=== PATIENT | female | born 1940 | race African-American/Black ===

== ENCOUNTER → 2020-03-27 | Outpatient (CLI) | payer MEDICARE ==
--- NOTE | 2020-03-27 11:13 | RADIOLOGY REPORT (SQ) ---
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 TECHNIQUE: CT scan of the chest performed using helical scanning technique with dynamic intravenous contrast injection. Images reviewed with lung, soft tissue and bone windows. Reconstructed coronal and sagittal MPR and MIP images reviewed. All images stored on PACS. All CT scanners at this facility use dose modulation, iterative reconstruction, and/or weight based d osing when appropriate to reduce radiation dose to as low as reasonably achievable (ALARA). [facility]: Dose Right [facility]: CareDose [facility]: Dose Right [facility]: Teradose 4D [facility]: [employer] RENAL FUNCTION: Creatinine 1.5 RADIATION DOSE: CT Rad equipment meets quality standard of care and radiation dose reduction techniq ues were employed. CTDIvol: 4.7 - 5.5 mGy. DLP: 690 mGy-cm. . LIMITATIONS: None. FINDINGS: LUNGS AND PLEURA: No nodules or infiltrate. Mild emphysema. Bandlike scarring in the mid dle lobe and left lower lobe. HILAR AND MEDIASTINAL STRUCTURES: No identified masses or abnormal nodes. HEART AND VASCULAR STRUCTURES: No aneurysm or dissection. No central pulmonary emboli. No pericardi al effusion. HARDWARE: None in the chest. UPPER ABDOMEN: See separate report of the CT of the abdomen. THYROID AND OTHER SOFT TISSUES: No masses. No adenopathy. BONES: No significant finding. OTHER: No other significant finding. IMPRESSION: No evidence of metastatic disease. TECHNICAL DOCUMENTATION: JOB ID: [id number] Quality ID # [id number]: Final reports with documentation of one or more dose reduction techniques (e.g., Au tomated exposure control, adjustment of the mA and/or kV according to patient size, use of iterative reconstruction technique) 2010 [employer]- All Rights Reserved Reading location - IP/workstation name: [email or web address]
--- NOTE | 2020-03-27 11:23 | RADIOLOGY REPORT (SQ) ---
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 TECHNIQUE: CT scan of the abdomen and pelvis performed using helical scanning technique with dynamic intravenous contrast injection. No oral contrast. Images reviewed with lung, soft tissue, and bone windows. Reconstructed coronal and sagittal MPR images reviewed. Delayed images for evaluation of the urinary system also acquired. All images stored on PACS. All CT scanners at this facility use dose modulation, iterative reconstruction, and/or weight based d osing when appropriate to reduce radiation dose to as low as reasonably achievable (ALARA). [facility]: Dose Right [facility]: CareDose [facility]: Dose Right [facility]: Teradose 4D [facility]: [employer] CONTRAST TYPE AND DOSE: contrast/concentration: Isovue 350.00 mmol/ml; Total Contrast Delivered: 73. 0 ml; Total Saline Delivered: 65.0 ml RENAL FUNCTION: See separate report of the same date. RADIATION DOSE: . LIMITATIONS: None. FINDINGS: LOWER CHEST: See separate report of the CT of the chest. LIVER: Subcentimeter low-density lesion near the falciform ligament which is too small to characteriz e. 1 cm cyst right lobe. SPLEEN: Normal size. No focal lesions. PANCREAS: No masses. No significant calcifications. No adjacent inflammation or peripancreatic fluid collections. Pancreatic duct not dilated. GALLBLADDER: No identified stones by CT criteria. No inflammatory changes to suggest cholecystitis. ADRENAL GLANDS: No significant masses or asymmetry. RIGHT KIDNEY AND URETER: No solid masses. No significant calcifications. No hydronephrosis or hyd roureter. LEFT KIDNEY AND URETER: Largely occupied by a heterogeneous partially calcified mass with relative sp aring of the inferior margin. 10.9 x 13.0 cm. There is anterior displacement of the pancreatic andre l. Renal vein appears patent. No hydronephrosis or hydroureter. AORTA AND VESSELS: No aneurysm. No dissection. Renal arteries, SMA, celiac without stenosis. RETROPERITONEUM: 10 x 12 mm node just lateral to the left renal vein image 35. BOWEL AND PERITONEAL CAVITY: No masses or inflammatory changes. No free fluid or peritoneal masses. APPENDIX: Not visualized. PELVIS: No mass. No free fluid. Normal bladder. ABDOMINAL WALL: No masses. No hernias. BONES: No significant or acute findings. OTHER: No other significant finding. IMPRESSION: Large left renal mass consistent with renal cell carcinoma. There is anterior displacem ent of the pancreatic tail but no definitive invasion of the gland. Small regional retroperitoneal n odes. TECHNICAL DOCUMENTATION: JOB ID: [id number] Quality ID # [id number]: Final reports with documentation of one or more dose reduction techniques (e.g., Au tomated exposure control, adjustment of the mA and/or kV according to patient size, use of iterative reconstruction technique) 2010 [employer]- All Rights Reserved Reading location - IP/workstation name: [email or web address]-
== END ==
LOC: RAD 08:22
PROVIDERS: ATTEND Internal Medicine
DX: C64.2 Malignant neoplasm of left kidney, except renal pelvis (principal)
CPT/HCPCS: 71260; 74177; 82565

== ENCOUNTER 2020-04-07 09:27 | Outpatient (CLI) | payer MEDICARE ==
[~2020-04-07 09:27] MED LIST: FERUMOXYTOL (NON-ESRD) 510 MG/NS 100 ML IV PRN; NORMAL SALINE 250 ML IV PRN
[2020-04-07 09:37] VITALS: BP 155/68
== END 2020-04-07 10:45 | disposition home or self-care (01) ==
LOC: II 09:27 → 5TH 09:32 → II 10:45
PROVIDERS: ATTEND Internal Medicine
DX: D50.9 Iron deficiency anemia, unspecified (principal); N18.30 Chronic kidney disease, stage 3 unspecified
CPT/HCPCS: 96365; Q0138; J7050

== ENCOUNTER 2020-04-14 09:25 | Outpatient (CLI) | payer MEDICARE ==
[2020-04-14 09:47] VITALS: BP 113/68
== END 2020-04-14 10:15 | disposition home or self-care (01) ==
LOC: II 09:25 → 5TH 09:57 → II 10:15
PROVIDERS: ATTEND Internal Medicine
DX: N18.30 Chronic kidney disease, stage 3 unspecified (principal); D50.9 Iron deficiency anemia, unspecified
CPT/HCPCS: 96365; Q0138; J7050

== ENCOUNTER → 2020-06-22 | Outpatient (CLI) | payer MEDICARE ==
--- NOTE | 2020-06-22 09:36 | RADIOLOGY REPORT (SQ) ---
EXAM DESCRIPTION: CT CHEST WITH; CT ABD/PELVIS WITH IV ONLY IMAGES COMPLETED DATE/TIME: 06/22/2020 8:34 am REASON FOR STUDY: (C64.2)MALIGNANT NEOPLASM OF LEFT KIDNEY, EXCEPT RENAL PELVIS C64.2 MALIGNANT AMEYA PLASM OF LEFT KIDNEY, EXCEPT RENAL PELVIS CONTRAST TYPE AND DOSE: Contrast/concentration: Isovue 300.00 mmol/ml; Total Contrast Delivered: 60. 0 ml; Total Saline Delivered: 55.0 ml RENAL FUNCTION: Creatinine 1.9 milligrams/deciliter. COMPARISON: CT of the chest from 03/27/2020. TECHNIQUE: CT scan of the chest performed using helical scanning technique with dynamic intravenous contrast injection. Images reviewed with lung, soft tissue and bone windows. Reconstructed coronal a nd sagittal MPR images reviewed. All images stored on PACS. All CT scanners at this facility use dose modulation, iterative reconstruction, and/or weight based d osing when appropriate to reduce radiation dose to as low as reasonably achievable (ALARA). [facility]: Dose Right [facility]: CareDose [facility]: Dose Right [facility]: Teradose 4D [facility]: [employer] LIMITATIONS: None. FINDINGS: AXILLAE: No adenopathy. CHEST WALL: No mass or subcutaneous emphysema. LUNGS AND PLEURA: The trachea and main bronchi are patent. There is re- demonstration of mild upper lobe predominant centrilobular emphysema. The numerous cystic spaces scattered throughout both lungs are unchanged in size and number. The dependent ground-glass opacities in the lower lobes are also unchanged. There is no acute consolidation, pulmonary nodule, pleural effusion or pneumothorax. THYROID: No nodule or asymmetry. HILAR AND MEDIASTINAL STRUCTURES: No adenopathy or mass. AORTA AND GREAT VESSELS: No aneurysm or dissection of the thoracic aorta. PULMONARY ARTERIES: No filling defects within the main, right and left pulmonary arteries. HEART: Moderate to severe atherosclerotic calcification of the coronary arteries. There is no perica rdial effusion. HARDWARE AND LIFELINES: None. BONES: No fracture or osseous lesion. OTHER: No other findings. IMPRESSION: No acute cardiopulmonary process and no evidence of metastatic disease. COMPARISON: CT of the abdomen pelvis with contrast from 03/27/2020. TECHNIQUE: CT scan of the abdomen and pelvis performed with intravenous and oral contrast using dennis yobani scanning technique with dynamic intravenous contrast injection. Images reviewed with lung, soft tissue and bone windows. Reconstructed coronal and sagittal MPR images reviewed. Delayed images for evaluation of the urinary system also acquired and evaluated. All images stored on PACS. All CT scanners at this facility use dose modulation, iterative reconstruction, and/or weight based d osing when appropriate to reduce radiation dose to as low as reasonably achievable (ALARA). [facility]: Dose Right [facility]: [employer] [facility]: Dose Right [facility]: Teradose 4D [facility]: [employer] FINDINGS: LIVER: The morphology of the liver is noncirrhotic. The low attenuation lesions in the he patic dome (image 11 of series 3) adjacent to the falciform ligament (image 23 of series 3) and withi n segment 7 of the liver (image 22 of series 3) are stable. The portal veins are patent. SPLEEN: No splenomegaly or splenic mass. PANCREAS: No acute gross abnormality of the pancreas. GALLBLADDER: No acute gross abnormality of the gallbladder. ADRENAL GLANDS: No mass or asymmetry. RIGHT KIDNEY AND URETER: Stable subcentimeter low-attenuation lesion in the medial cortex of the kidn ey (image 30 of series 3). There is no solid mass, hydronephrosis, nephrolithiasis, hydroureter or u reterolithiasis. LEFT KIDNEY AND URETER: There is re- demonstration of a heterogeneous partially necrotic exophytic ma ss that arises from the superior pole of the kidney ; the mass displaces the splenic vein and portion s of the pancreas ; the size of the mass and the degree of mass effect upon the aforementioned struct ures are unchanged. There is no hydronephrosis or hydroureter. AORTA AND VESSELS: Variant circumaortic left renal vein; the vessel is patent. The varicose vessels posterior to the renal mass (image 39 of series 3) are also unchanged. There is atherosclerotic calc ification of the abdominal aorta and iliac arteries. There is no abdominal aortic aneurysm. RETROPERITONEUM: Stable lateral aortic lymph node (image 35 of series 3) LARGE AND SMALL BOWEL: No bowel obstruction, bowel wall thickening or pericolonic/perienteric inflamm ation. APPENDIX: Unable to identify the appendix. There is no pericecal inflammation. ABDOMINAL WALL: No hernia or masses. PERITONEAL CAVITY: No mesenteric adenopathy, free intraperitoneal fluid or mesenteric/ omental inflam mation. PELVIS: The uterus is surgically absent. The urinary bladder is partially distended. There is no ad nexal mass BONES: Degenerative spondylosis and facet joint arthropathy of the lumbar spine. There is no fractur e or osseous lesion. OTHER: No other findings. IMPRESSION: Stable heterogeneous partially necrotic left renal mass as detailed above. The left dorota al vein is patent. The lateral aortic lymph node described on the prior CT is unchanged in size. TECHNICAL DOCUMENTATION: JOB ID: [id number] Quality ID # [id number]: Final reports with documentation of one or more dose reduction techniques (e.g., Au tomated exposure control, adjustment of the mA and/or kV according to patient size, use of iterative reconstruction technique) 2010 [employer]- All Rights Reserved Reading location - IP/workstation name: [email or web address]
== END ==
LOC: RAD 07:44
PROVIDERS: ATTEND Internal Medicine
DX: C64.2 Malignant neoplasm of left kidney, except renal pelvis (principal)
CPT/HCPCS: 71260; 74177